=== PATIENT | female | born 1995 | race Caucasian/White ===

== ENCOUNTER 2024-05-01 12:01 | Emergency (ER) | payer OTHER, SELFPAY ==
[2024-05-01 12:09] VITALS: BP 126/71
[2024-05-01 12:32] LABS: % Basophils 0.3 % (0-2); % Eosinophils 1.1 % (0-6); % Immature Granulocytes 0.3 % (0-0.5); % Lymphocytes 19.5 % (20.5-51.1); % Monocytes 5.4 % (1.7-9.3); % Neutrophils 73.4 % (42.2-75.2); Absolute Eosinophils 0.1 10^3/uL (0-0.7); Absolute Lymphocytes 2.3 10^3/uL (1.2-3.4); Absolute Monocytes 0.6 10^3/uL (0.1-0.6); Absolute Neutrophils 8.7 10^3/uL (1.4-6.5); Hemoglobin 14.2 g/dL (12.0-16.0); Mean Corpuscular Hgb 29.8 pg (27.0-31.0); Mean Corpuscular Volume 90.1 fL (81.0-99.0); Mean Platelet Volume 9.5 fL (7.4-10.4); Nucleated Red Blood Cells % 0 %; Platelet Count 206 10^3/uL (130-400); Red Blood Cell Count 4.77 10^6/uL (4.20-5.40); Red Cell Dist. Width 11.9 % (11.5-14.5); Urine Albumin Negative (Neg - Trace); Urine Bilirubin Negative (Negative); Urine Character Clear (Clear); Urine Color Yellow; Urine Glucose Negative (Negative); Urine Ketone Negative (Negative); Urine Leukocyte Negative (Negative); Urine Nitrite Negative (Negative); Urine Occult Blood Negative (Negative); Urine Specific Gravity 1.015 (<1.030); Urine Urobilinogen Negative (Neg - 1+); White Blood Cell Count 11.8 10^3/uL (4.8-10.8)
[2024-05-01 12:45] LABS: HCG, Serum Qualitative Screen Negative
[2024-05-01 12:47] LABS: ALT (SGPT) 27 U/L (0-35); AST (SGOT) 24 U/L (14-36); Albumin 4.6 g/dl (3.5-5.0); Alkaline Phosphatase 62 U/L (38-126); Blood Urea Nitrogen 11 mg/dl (7-17); Calcium 9.3 mg/dl (8.4-10.2); Carbon Dioxide 26 mmol/L (22-30); Chloride 102 mmol/L (98-107); Glucose 96 mg/dl (70-99); Lipase 59 U/L (23-300); Potassium 4.3 mmol/L (3.5-5.1); Sodium 136 mmol/L (135-145); Total Bilirubin 0.6 mg/dl (0.2-1.3); Total Protein 7.1 g/dl (6.3-8.2); eGFR > 60.00
[2024-05-01 13:01] VITALS: BMI 25.8
--- NOTE | 2024-05-01 15:04 | ED.GENMED ---
History of Present Illness
General
Chief Complaint: Abdominal Pain
Source: patient
Exam Limitations: none
Time Seen by Provider: 05/01/24 14:45
Nursing documentation reviewed up to this point in time: agreed with
History of Present Illness
History of Present Illness:
Patient is a 29 year old female presenting to the emergency department following episode of severe abdominal pain this morning that has since resolved patient states she was woken from sleep at 5 AM with a sharp pain throughout her abdomen. Pain
persisted for about 2 hours then seem to resolve. This was accompanied by nausea although patient denies any vomiting. She felt chilly although denies known fever. Patient denies any changes in bowel movements or urinary symptoms. Patient does
note that she is about 1 week late for her period and think she might be .
Patient denies any chest pain or shortness of breath. No history of abdominal surgeries.
Her and her did have some seafood last night for dinner although her remains well.
At this point patient states she feels essentially at her baseline.
Review of Systems
Review of Systems
Allergies reviewed?: Yes
All Other Systems: ROS reviewed and negative except as documented in HPI and ROS
Phy Exam
Physical Exam
Physical Exam:
Vitals: Patient's vital signs are stable. Afebrile
General: Patient is well appearing, no acute distress. Nontoxic appearing
Skin: Warm and dry, no rashes or lesions
Head: Normocephalic, atraumatic
Eyes: Sclera nonicteric. EOMs intact. No nystagmus.
Throat: Protecting airway
Neck: Normal ROM, no cervical spine tenderness, no meningismus
Cardiac: Regular rate and rhythm, no murmurs.
Pulm: Normal respiratory effort, no wheezes, rales, rhonchi heard on exam.
Abdomen: Abdomen soft. No abdominal tenderness. No rebound tenderness or guarding. No rash
Extremities: No evidence of cyanosis or edema
Neuro: AAOx3. Grossly intact.
Psychiatric: Normal affect.
Course
Orders/Labs/Results
Orders:
Orders
05/01/24 12:12
Test Result ONCE
05/01/24 12:21
Complete Blood Count/With Diff Urgent
Comprehensive Metabolic Panel Urgent
HCG, Serum Qualitative Screen Urgent
Comment: Notify provider if positive test present
Lipase Urgent
Urinalysis Reflex To Culture Urgent
Date Specimen was Collected: 05/01/24
Time Specimen was Collected: 12:12
05/01/24 15:03
Acetaminophen [Tylenol] 650 mg PO NOW STA
US Abdomen Complete/Upper Urgent
Comment:
Reason For Exam: Intermittent abdominal pain + nausea
05/01/24 15:14
COVID-19 Antigen Urgent
Source: Nasal Swab
Influenza A+B Rapid Molecular Urgent
AKIRA Source: Nasal Swab
Specimen Description:
Abnormal Lab Results
05/01/24
12:21
WBC 11.8 H 10^3/uL
(4.8-10.8)
Absolute Neuts (auto) 8.7 H 10^3/uL
(1.4-6.5)
Lymphocytes % 19.5 L %
(20.5-51.1)
Creatinine 0.5 L mg/dL
(0.6-1.0)
05/01/24 12:21
05/01/24 12:21
Vital Signs
Initial and Last Documented VS:
Initial Vital Signs
Temp Pulse Resp BP Pulse Ox
98.2 F 76 16 126/71 100
05/01/24 12:09 05/01/24 12:09 05/01/24 12:09 05/01/24 12:09 05/01/24 12:09
Last Documented Vital Signs
Temp Pulse Resp BP Pulse Ox
98.2 F 63 18 108/68 99
05/01/24 12:09 05/01/24 18:41 05/01/24 18:41 05/01/24 18:41 05/01/24 18:41
MDM/Problems Addressed
Differential Diagnosis Includes:
Not limited to: Viral gastroenteritis, gastritis, cholelithiasis, cholecystitis, cystitis, ureterolithiasis, etc.
MDM/Problems Addressed:
29-year-old female presenting following episode of abdominal pain and nausea this morning which has since resolved. No vomiting, fevers, diarrhea. No urinary symptoms. Patient is 1 week late for her menstrual cycle and attempting .
Vital signs are stable. She is afebrile. On exam�patient is tearful after discussion of negative test here. Her abdomen is soft and nontender throughout. Cardiopulmonary assessment unremarkable. Differential at this point broad
although considerations include possible viral gastroenteritis, biliary colic, etc. Given symptoms of essentially resolved and patient is afebrile does much lower suspicion for acute intra-abdominal emergency including appendicitis. Basic labs
were initiated in triage significant for mild leukocytosis of 11.8. Chemistry unremarkable. Her test is negative and urine shows no evidence of infection or red blood cells. Will check viral swabs and abdominal ultrasound to rule out
possible cholelithiasis. Will monitor patient and reassess
Update 4:20 PM: Into reassess patient at bedside who states headache is improved following Tylenol. Abdomen remains soft and nontender. Ultrasound pending.
Update: Ultrasound report reviewed which shows no evidence of gallstones or other acute abnormalities in abdomen. Patient's abdomen remains soft and nontender. She has not had any abdominal pain since arrival to emergency department. It is
possible that symptoms are secondary to a underlying viral illness. No evidence of acute emergent pathology today. Feel patient is stable for discharge home with return precautions. Case discussed with attending physician.
Chronic conditions affecting care:
N/A
Acute Exacerbation and/or Progression of Chronic Illness:
N/A
*Radiology
Radiology exam reviewed: radiology read reviewed
*Pulse Oximetry
Patient hypoxic: no
*EKG
Interpreted by ED Provider?: NA
*Appraiser Art Interpretation
Rate: Appraiser Art- N/A
*Critical Care Note
Total Time (30-74mins, 75-104mins- exclusive of procedures): Not Applicable
ED Attending Note
-
Portions of this chart may have been created with voice recognition software.� Occasional wrong word or��sound alike� substitutions may have occurred due to the inherent limitations of voice recognition software.
Discharge Plan
Departure
Patient Disposition: Home (Routine Discharge)
Date of Disposition: 05/01/24
Time of Disposition: 18:30
Patient with high blood pressure during this ER visit?: No
Condition: Good
Covid-19: Negative COVID-19
Discharge Problem:
Abdominal pain
Instructions: Abdominal Pain
Referrals:
Nasreen Lua DO [Active] - Next open appointment
Alejandro Barth MD [Family Provider] - Follow up in 2-3 days
Activity Restrictions/Additional Instructions:
Return to the emergency department with any high fevers, worsening/persistent abdominal pain, intractable nausea/vomiting, chest pain, shortness of breath, or any other concerns
-As discussed your lab work and abdominal ultrasound showed no acute abnormalities today. Your urine showed no evidence of infection. Your test was negative. Your viral testing was also negative
-Continue to stay well-hydrated. I would recommend a bland diet slowly advancing as tolerated. You can take Zofran as needed for persistent nausea
-Follow-up with your primary care for further evaluation/management and to ensure that symptoms are improving
Monitor your symptoms closely and return to the emergency department with any acute worsening/new symptoms or any other concerns
Interventions
Interventions:
*Risk Screen - Suicide Last Done: 05/01/24 12:09
*Neglect/Abuse Screening Last Done: 05/01/24 12:09
*Nursing Disposition Last Done: 05/01/24 18:42
HA-Tkfmhd-Jhxzwxtbmw Assessment Last Done: 05/01/24 12:59
Discharge Date and Time
Discharge Date/Time: 05/01/24 18:43
Print Language: INDONESIAN
[2024-05-01] MEDS: TYLENOL 650 MG PO (15:13)
[2024-05-01 15:37] LABS: COVID-19 Antigen Negative (Negative)
[2024-05-01 18:41] VITALS: BP 108/68
== END 2024-05-01 18:43 | disposition home or self-care (01) ==
LOC: EMR 12:01
PROVIDERS: Emergency Medicine; Physician Assistant; EMERGENCY PHYSICIAN Emergency Medicine; FAMILY PHYSICIAN Student in an Organized Health Care Education/Training Program
DX: R10.9 Unspecified abdominal pain (principal); Z11.52 Encounter for screening for COVID-19
CPT/HCPCS: 99285; 76700; 80053; 81003; 83690; 84703; 85025; 87502; 87811

== ENCOUNTER → 2024-05-27 15:05 | Outpatient (REF) | payer OTHER, SELFPAY | LOC: RAD 15:05 | PROVIDERS: ATTENDING PHYSICIAN Obstetrics & Gynecology; FAMILY PHYSICIAN Student in an Organized Health Care Education/Training Program | DX: R10.2 Pelvic and perineal pain (principal) | CPT/HCPCS: 76830; 76856 ==

== ENCOUNTER → 2024-08-02 08:31 | Outpatient (REF) | payer OTHER, SELFPAY | LOC: HWRAD 08:31 | PROVIDERS: ATTENDING PHYSICIAN Obstetrics & Gynecology; FAMILY PHYSICIAN Student in an Organized Health Care Education/Training Program | DX: N83.201 Unspecified ovarian cyst, right side (principal) | CPT/HCPCS: 76830; 76856 ==